=== PATIENT | female | born 1995 | race Caucasian/White ===

== ENCOUNTER 2020-04-25 22:55 | Emergency (ER) | payer BC ==
[2020-04-25] MEDS ORDERED: PROAIR HFA0.09 MG/AC IH (23:11)
[2020-04-25] MEDS ORDERED: SINGULAIR PO (23:11)
[2020-04-25] MEDS ORDERED: FLONASE ALLERG9.9 ML NS (23:11)
[2020-04-25 23:32] LABS: EOS # 0.3 (0.04-0.40); EOS % 3.4 % (1.0-5.0); HEMOGLOBIN 13.4 g/dL (12.5-16.0); MEAN CELL VOLUME 90 fl (78-100); MEAN CORPUSCULAR HEMOGLOBIN 30 pg (27-31); MEAN CORPUSCULAR HGB CONC 34 g/dL (33-37); MEAN PLATELET VOLUME 9.9 fl (7.4-10.4); MONO # 0.8 (0.20-0.80); NEU # 6.8 (1.40-6.50); PLATELET COUNT 331 K/mm3 (130-400); RED BLOOD COUNT 4.47 M/mm3 (4.10-5.30); RED CELL DISTRIBUTION WIDTH 12.6 % (11.5-14.5)
[2020-04-25 23:45] LABS: ALBUMIN 4.5 g/dL (3.5-5.0); POTASSIUM 3.8 mmol/L (3.5-5.1)
[2020-04-25 23:46] LABS: CALCIUM 9.6 mg/dL (8.3-10.5)
[2020-04-25 23:48] LABS: URINE APPEARANCE CLOUDY; URINE BILIRUBIN NEGATIVE (NEGATIVE); URINE BLOOD TRACE (NEGATIVE); URINE COLOR YELLOW; URINE GLUCOSE NEGATIVE (NEGATIVE); URINE KETONE NEGATIVE (NEGATIVE); URINE LEUKOCYTE ESTERASE 1+ (NEGATIVE); URINE NITRATE POSITIVE (NEGATIVE); URINE PROTEIN(semi-quant) TRACE mg/dL (NEGATIVE); URINE UROBILINOGEN NORMAL (NORMAL)
[2020-04-25 23:49] LABS: URINE MUCUS PRESENT (NOT PRESENT)
[2020-04-25 23:49] LABS: TOTAL BILIRUBIN 0.3 mg/dL (0.2-1.2)
[2020-04-26] MEDS ORDERED: DIFLUCAN150 M1 PO (00:22)
[2020-04-26] MEDS ORDERED: CIPRO 500MG TA500 MG PO (00:22)
[2020-04-26 01:25] VITALS: BP 120/86
== END 2020-04-26 01:38 | disposition home or self-care (01) ==
LOC: ED 22:55
PROVIDERS: Internal Medicine
DX: N12 Tubulo-interstitial nephritis, not specified as acute or chronic (principal); Z32.02 Encounter for pregnancy test, result negative
CPT/HCPCS: J0696; J2405; J7030

== ENCOUNTER → 2020-08-12 | Outpatient (CLI) | payer BC ==
[~2020-08-12] MED LIST: CIPRO 500MG TA500 MG PO; DIFLUCAN150 M1 PO; FLONASE ALLERG9.9 ML NS; PROAIR HFA0.09 MG/AC IH; SINGULAIR PO
== END ==
LOC: LAB 09:07 → RAD 09:07
DX: N30.91 Cystitis, unspecified with hematuria (principal); N28.89 Other specified disorders of kidney and ureter
CPT/HCPCS: Q9967

== ENCOUNTER → 2020-09-02 | Outpatient (CLI) | payer BC ==
[2020-08-21 23:20] VITALS: BP 116/66
[~2020-09-02] MED LIST changes: +NORCO 325 MG-51 TA1 PO
== END ==
LOC: LAB 15:33
DX: N91.2 Amenorrhea, unspecified (principal)

== ENCOUNTER → 2020-10-05 | Outpatient (CLI) | payer BC ==
[2020-08-21 23:20] VITALS: BP 116/66
== END ==
LOC: RAD 08:30
DX: S82.61XD Displaced fracture of lateral malleolus of right fibula, subsequent encounter for closed fracture with routine healing (principal)

== ENCOUNTER → 2024-08-12 | Outpatient (CLI) | payer BC ==
[2024-08-12 15:05] LABS: BASO # 0.01 K/mm3 (0.02-0.10); EOS # 0.07 K/mm3 (0.04-0.40); HEMATOCRIT 42.2 % (37.0-47.0); LYMPH# 1.71 K/mm3 (1.50-4.00); MEAN CELL VOLUME 92 fl (78-100); MEAN CORPUSCULAR HEMOGLOBIN 31 pg (27-31); MEAN CORPUSCULAR HGB CONC 33 g/dL (33-37); MEAN PLATELET VOLUME 9.1 fl (7.4-10.4); MONO # 0.81 K/mm3 (0.20-0.80); NEU # 4.11 K/mm3 (1.40-6.50); PLATELET COUNT 299 K/mm3 (130-400); RED BLOOD COUNT 4.57 M/mm3 (4.10-5.30); RED CELL DISTRIBUTION WIDTH 12.3 % (11.5-14.5); WHITE BLOOD COUNT 6.7 K/mm3 (4.8-10.8)
[2024-08-12 15:09] LABS: ALBUMIN 4.5 g/dL (3.5-5.0)
[2024-08-12 15:11] LABS: CALCIUM 9.6 mg/dL (8.3-10.5)
[2024-08-12 15:12] LABS: TOTAL PROTEIN 7.5 g/dL (6.4-8.3)
[2024-08-12 15:14] LABS: TOTAL BILIRUBIN 0.2 mg/dL (0.2-1.2)
== END ==
LOC: LAB 14:47
PROVIDERS: Physician Assistant
DX: R10.9 Unspecified abdominal pain (principal)

== ENCOUNTER → 2024-11-04 | Outpatient (CLI) | payer BC | LOC: RAD 16:17 | DX: R04.2 Hemoptysis (principal) ==